=== PATIENT | male | born 1990 | race Caucasian/White ===

== ENCOUNTER 2016-09-18 10:05 | Emergency (ER) | payer SELFPAY ==
[~2016-09-18 10:05] MED LIST: HYDR-971 PO; IBUP800T19 PO; ONDA4TAB10 SL; PRED50TA PO
[2016-09-18 10:08] VITALS: BP 128/66
[2016-09-18] MEDS ORDERED: IPRATRPIUM/ALBUTEROL 0.5/2.5MG 3 ML NEBU. ONE (10:16)
[2016-09-18] MEDS ORDERED: IPRATRPIUM/ALBUTEROL 0.5/2.5MG 3 ML NEBU. NEB ONE (10:40)
[2016-09-18] MEDS ORDERED: methylPREDNISolone SOD SUCC PF 125 MG/2 ML VIAL. IM ONE (10:40)
[2016-09-18] MEDS ORDERED: ALBU2.5V14 NEB (11:47)
[2016-09-18] MEDS ORDERED: ALBU18HF IH (11:47)
[2016-09-18] MEDS ORDERED: GUAI118L13 PO (11:47)
[2016-09-18] MEDS ORDERED: PRED20TA PO (11:47)
--- NOTE | 2016-09-18 11:51 | PHYS DOC ---
General Chief Complaint: SHORTNESS OF BREATH Stated Complaint: SOA Time Seen by MD: 10:06 Source: patient Exam Limitations: no limitations Problems: History of Present Illness Initial Comments Pt is 25/M to ED c/o cough. Pt has h/o asthma, has neb machine but no meds. Past two days worsening dry cough, today FLEMING no SOB at rest. Runny nose/sneezing at home, no measured temperatures OTC meds not helping. Pt is a smoker, states he "just quit." Timing/Duration: 24 hours, getting worse Severity: moderate Modifying Factors: worse with movement, improves with rest Associated Symptoms: cough, malaise, shortness of breath Allergies: Coded Allergies: cefaclor (Verified Allergy, Unknown, 02/23/16) Past Medical History Medical History: other (asthma, ADHD) Surgical History: tonsillectomy Social History Smoker: cigarettes Alcohol: occasionally Drugs: none Review of Systems Constitutional: denies chills, denies diaphoresis, denies fever, malaise EENTM: denies eye pain, denies ear pain, nose congestion, denies throat pain Respiratory: see HPI Cardiovascular: denies chest pain, denies palpitations, denies syncope Gastrointestinal: denies diarrhea, denies nausea, denies vomiting Musculoskeletal: denies back pain, denies joint swelling, denies neck pain Psychiatric/Neurological: denies headache, denies numbness, denies paresthesia Physical Exam General Appearance: no apparent distress Eyes: bilateral eye normal inspection, bilateral eye PERRL, bilateral eye EOMI Ear, Nose, Throat: hearing grossly normal, normal ENT inspection, normal pharynx Neck: non-tender, supple Respiratory: other (wheezes with diminished air movement b/l no resp distress chest nontender) Cardiovascular: normal peripheral pulses, regular rate, rhythm Gastrointestinal: non tender, soft Back: no CVA tenderness, no vertebral tenderness Extremities: non-tender, normal inspection Neurologic/Psychiatric: drug and alcohol counselor II-XII nml as tested, no motor/sensory deficits, alert, normal mood/affect, oriented x 3 Skin: normal color, warm/dry Orders, Labs, Meds Improvement clinically and better air movement with duoneb/solumedrol in ED, pt expressed agreement/understanding with treatment plan. Advised to stop smoking. Departure Time of Disposition: 11:49 Disposition: 01 HOME, SELF-CARE Diagnosis: asthma exacerbation Condition: GOOD Patient Instructions: Asthma, Acute Bronchospasm Additional Instructions: Rest, no strenuous activity. Work excuse today. Avoid environmental allergens as you are able. Rx: prednisone, albuterol MDI and nebulizer solution, guaifenesin/codeine syrup Follow up with your doctor in 3-5 days for recheck. Return to ED with new or changing symptoms. ENRICO KHAN DO September 18, 2016 11:51
== END 2016-09-18 11:57 | disposition home or self-care (01) ==
LOC: ER 10:05
DX: J45.901 Unspecified asthma with (acute) exacerbation (principal); F17.210 Nicotine dependence, cigarettes, uncomplicated; Z88.1 Allergy status to other antibiotic agents
CPT/HCPCS: 94640; 96372; 99283; J2930; J7620; 90471

== ENCOUNTER 2017-11-06 20:33 | Emergency (ER) | payer SELFPAY ==
[~2017-11-06] VITALS: Ht 170.2 cm; Wt 129.7 kg
[~2017-11-06 20:33] MED LIST changes: +ALBU18HF IH; +ALBU2.5V14 NEB; +GUAI118L13 PO; +PRED20TA PO
[2017-11-06] MEDS ORDERED: IV NORMAL SALINE 1,000ML 1,000 ML IV ONE (21:00)
--- NOTE | 2017-11-06 21:10 | PHYS DOC ---
Past History Past Medical History: Asthma Past Surgical History: No Surgical History Additional Smoking Information: 1/2 pack daily Alcohol Use: None Drug Use: None Adult General Chief Complaint Chief Complaint: DENTAL PROBLEM HPI HPI 19-year-old male presents with right upper quadrant dental pain and sunburn. She was out of insulin without sunscreen and has extensive sunburn on his shoulders and upper extremities. His primary complaint is his face is swollen and he has right upper quadrant pain. He has had tooth pain for about the last 1 week, but today his face swelled significantly knee became concerned. He denies fever or chills at home. He knows he cracked tooth 2-3 weeks ago and has had sensitivity since. He does not regularly see a dentist. He has no other complaints. Review of Systems Review of Systems Constitutional: Denies fever or chills [] Eyes: Denies change in visual acuity, redness, or eye pain [] HENT: Dental pain [] Respiratory: Denies cough or shortness of breath [] Cardiovascular: No additional information not addressed in HPI [] GI: Denies abdominal pain, nausea, vomiting, bloody stools or diarrhea [] : Denies dysuria or hematuria [] Musculoskeletal: Denies back pain or joint pain [] Integument: Sunburn [] Neurologic: Denies headache, focal weakness or sensory changes [] Endocrine: Denies polyuria or polydipsia [] All other systems were reviewed and found to be within normal limits, except as documented in this note. Current Medications Current Medications Current Medications Medications (Trade) Dose Ordered Sig/[place] Start Time Stop Time Status Last Admin Dose Admin Clindamycin HCl (Cleocin) 300 mg 1X ONCE 11/06/17 21:15 11/06/17 21:16 Ketorolac Tromethamine (Toradol) 30 mg 1X ONCE 11/06/17 21:15 11/06/17 21:16 Sodium Chloride 1,000 ml @ 1,000 mls/hr 1X ONCE 11/06/17 21:00 11/06/17 21:59 Allergies Allergies Allergies Coded Allergies Type Severity Reaction Last Updated Verified cefaclor Allergy Unknown 02/23/16 Yes Physical Exam Physical Exam Constitutional: Well developed, well nourished, no acute distress, non-toxic appearance. [] HENT: Normocephalic, atraumatic, bilateral external ears normal, oropharynx moist. Swelling of the right upper gums, cracked right upper posterior molar, no palpable area of fluctuance to drain. [] Eyes: PERRLA, EOMI, conjunctiva normal, no discharge. [] Neck: Anterior cervical lymphadenopathy on the right[] Cardiovascular:Heart rate regular rhythm, no murmur [] Lungs & Thorax: Bilateral breath sounds clear to auscultation [] Abdomen: Bowel sounds normal, soft, no tenderness, no masses, no pulsatile masses. [] Skin: Sunburn of the face, bilateral upper extremities.[] Back: No tenderness, no CVA tenderness. [] Extremities: No tenderness, no cyanosis, no clubbing, ROM intact, no edema. [] Neurologic: Alert and oriented X 3, normal motor function, normal sensory function, no focal deficits noted. [] Psychologic: Affect normal, judgement normal, mood normal. [] Current Patient Data Vital Signs Vital Signs Date Time Temp Pulse Resp B/P (MAP) Pulse Ox O2 Delivery O2 Flow Rate FiO2 11/06/17 20:44 98.8 111 20 95 Room Air EKG EKG [] Radiology/Procedures Radiology/Procedures [] Course & Med Decision Making Course & Med Decision Making Pertinent Labs and Imaging studies reviewed. (See chart for details) Negative the patient 1 L of normal saline, 10 mg Compazine, 300 mg of clindamycin, and 2 mg morphine. I will discharge him with 7 days of clindamycin as well as 12 [place] 5/325. I strongly encouraged him to get into a dentist as soon as possible to have this tooth removed. [] Dragon Disclaimer Dragon Disclaimer This electronic medical record was generated, in whole or in part, using a voice recognition dictation system. Departure Departure: Referrals: KERRY HARDY (PCP) Scripts Hydrocodone Bit/Acetaminophen ([place] 5-325 TABLET) 1 Each Tablet 1 TAB PO PRN Q6HRS PRN for PAIN, #12 TAB 0 Refills Prov: RACHAEL ECKERT DO 11/06/17 Clindamycin Hcl (CLINDAMYCIN HCL) 300 Mg Capsule 1 CAP PO TID, #21 CAP Prov: RACHAEL ECKERT DO 11/06/17 RACHAEL ECKERT DO Nov 06, 2017 21:10
[2017-11-06] MEDS ORDERED: KETOROLAC 30 MG/ML VIAL. IV ONE (21:15)
[2017-11-06] MEDS ORDERED: CLINDAMYCIN HCL 150 MG CAPSULE PO ONE (21:15)
[2017-11-06 21:29] LABS: BASO # 0.2 x10^3/uL (0.0-0.2); BASO % 1 % (0-3); EOS # 0.4 x10^3/uL (0.0-0.7); EOS % 3 % (0-3); HEMATOCRIT 47.7 % (39.0-53.0); HEMOGLOBIN 16.6 g/dL (13.0-17.5); LYMPH # 3.9 x10^3/uL (1.0-4.8); LYMPH % 30 % (24-48); MEAN CORPUSCULAR HEMOGLOBIN 29 pg (25-35); MEAN CORPUSCULAR HGB CONC 35 g/dL (31-37); MEAN CORPUSCULAR VOLUME 84 fL (79-100); MONO # 0.7 x10^3/uL (0.0-1.1); MONO % 6 % (0-9); NEUT # 7.8 x10^3uL (1.8-7.7); NEUT % 60 % (31-73); PLATELET COUNT 255 x10^3/uL (140-400); RED BLOOD COUNT 5.65 x10^6/uL (4.30-5.70); RED CELL DISTRIBUTION WIDTH 14.6 % (11.5-14.5); WHITE BLOOD COUNT 12.9 x10^3/uL (4.0-11.0)
[2017-11-06 21:33] LABS: CALCIUM 9.3 mg/dL (8.5-10.1); CREATININE 1.1 mg/dL (0.7-1.3); GFR 79.7; POTASSIUM 3.4 mmol/L (3.5-5.1)
[2017-11-06] MEDS ORDERED: PROCHLORPERAZINE 10 MG/2 ML VIAL. IV ONE (22:00)
[2017-11-06] MEDS ORDERED: MORPHINE SULFATE 2 MG/ML DISP.SYRIN. IM ONE (22:00)
[2017-11-06] MEDS ORDERED: HYDR-971 PO (22:03)
[2017-11-06] MEDS ORDERED: CLIN300C8 PO (22:03)
[2017-11-06 22:22] VITALS: BP 142/91
== END 2017-11-06 22:30 | disposition home or self-care (01) ==
LOC: ER 20:33
DX: K08.89 Other specified disorders of teeth and supporting structures (principal); L55.9 Sunburn, unspecified; J45.909 Unspecified asthma, uncomplicated; F17.210 Nicotine dependence, cigarettes, uncomplicated; Z88.1 Allergy status to other antibiotic agents
CPT/HCPCS: 36415; 80048; 85025; 96372; 96374; 96375; 99284; J0780; J1885; J2270; J7030

== ENCOUNTER 2018-04-09 13:22 | Emergency (ER) | payer SELFPAY ==
[~2018-04-09] VITALS: Ht 167.6 cm; Wt 133.8 kg
[~2018-04-09 13:22] MED LIST changes: +CLIN300C8 PO; +HYDR-3165 PO; -HYDR-971 PO
[2018-04-09 13:32] VITALS: BP 153/93
[2018-04-09] MEDS ORDERED: PENI500T PO (13:54)
[2018-04-09] MEDS ORDERED: Percogesic PO (13:54)
--- NOTE | 2018-04-09 13:55 | PHYS DOC ---
Past History Past Medical History: No Pertinent History Past Surgical History: Other Smoking: Cigarettes Alcohol Use: Rarely Drug Use: None Adult General Chief Complaint Chief Complaint: DENTAL PROBLEM HPI HPI Patient is a 27 year old male who presents with draining of dental pain. 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 Patient denies fever and chills, nausea and vomiting, problems swallowing. Patient states he did not have dental insurance to follow up with a dentist but took [id number] pain medication without improvement of his condition. Patient has history of 15 years smoking. Review of Systems Review of Systems Constitutional: Denies fever or chills [] Eyes: Denies change in visual acuity, redness, or eye pain [] HENT: Denies nasal congestion or sore throat, reports dental pain Respiratory: Denies cough or shortness of breath [] Cardiovascular: No additional information not addressed in HPI [] GI: Denies abdominal pain, nausea, vomiting, bloody stools or diarrhea [] : Denies dysuria or hematuria [] Musculoskeletal: Denies back pain or joint pain [] Integument: Denies rash or skin lesions [] Neurologic: Denies headache, focal weakness or sensory changes [] Endocrine: Denies polyuria or polydipsia [] All other systems were reviewed and found to be within normal limits, except as documented in this note. Allergies Allergies Allergies Coded Allergies Type Severity Reaction Last Updated Verified cefaclor Allergy Unknown 02/23/16 Yes Physical Exam Physical Exam Constitutional: Well developed, well nourished, mild distress, non-toxic appearance. [] HENT: Normocephalic, atraumatic, bilateral external ears normal, oropharynx moist, no oral exudates, nose normal, extensive dental cavity is, tenderness of tooth # 6 and 7 without sign of abscess. [] Eyes: PERRLA, EOMI, conjunctiva normal, no discharge. [] Neck: Normal range of motion, no tenderness, supple, no stridor. [] Cardiovascular:Heart rate regular rhythm, no murmur [] Lungs & Thorax: Bilateral breath sounds clear to auscultation [] Skin: Warm, dry, no erythema, no rash. [] Back: No tenderness, no CVA tenderness. [] Extremities: No tenderness, no cyanosis, no clubbing, ROM intact, no edema. [] Neurologic: Alert and oriented X 3, normal motor function, normal sensory function, no focal deficits noted. [] Psychologic: Affect anxious, judgement normal, mood normal. [] Current Patient Data Vital Signs Vital Signs Date Time Temp Pulse Resp B/P (MAP) Pulse Ox O2 Delivery O2 Flow Rate FiO2 04/09/18 13:32 97.7 101 16 99 Room Air EKG EKG [] Radiology/Procedures Radiology/Procedures [] Course & Med Decision Making Course & Med Decision Making Evaluation of patient in ER showed 27-year-old male patient with extensive dental cavity and smoking prolonged time presented to ER with complaining of several dental pain. Patient had stable vital sign and treated with [place] and instructed to quit smoking and follow up with the dentist. Dragon Disclaimer Dragon Disclaimer This electronic medical record was generated, in whole or in part, using a voice recognition dictation system. Departure Departure: Disposition: 01 HOME, SELF-CARE (at 1351) Condition: STABLE Referrals: PCP,DEVANTE (PCP) Patient Instructions: Dental Caries, Smoking Cessation, Tips For Success, Toothache-Brief Additional Instructions: Quit smoking Follow-up with your dentist in 3-5 days Return to ER if not getting better Scripts [Percogesic] No Conflict Check 1 TAB PO QID for pain, #14 Prov: HECTOR CARRILLO MD 04/09/18 Penicillin V Potassium (PENICILLIN V POTASSIUM) 500 Mg Tablet 1 TAB PO QID for Infection, #40 TAB Prov: HECTOR CARRILLO MD 04/09/18 HECTOR CARRILLO MD Apr 09, 2018 13:55
[2018-04-09] MEDS ORDERED: HYDROcodone/APAP 5/325MG 1 TAB TABLET PO ONE (14:00)
== END 2018-04-09 14:02 | disposition home or self-care (01) ==
LOC: ER 13:22
DX: K02.9 Dental caries, unspecified (principal); F17.210 Nicotine dependence, cigarettes, uncomplicated; Z88.1 Allergy status to other antibiotic agents
CPT/HCPCS: 99283

== ENCOUNTER 2018-10-05 19:47 | Emergency (ER) | payer SELFPAY ==
[~2018-10-05] VITALS: Ht 170.2 cm; Wt 129.3 kg
[~2018-10-05 19:47] MED LIST changes: -ALBU18HF IH; +ALBU2.5V8 IH; +PENI500T PO; +Percogesic PO
--- NOTE | 2018-10-05 20:01 | ED.ADGEN ---
Past History Past Medical History: No Pertinent History Past Surgical History: Other Smoking: Cigarettes Alcohol Use: Rarely Drug Use: None Adult General Chief Complaint Chief Complaint ".. I got this bad tooth ... here ( points to 1).. It cost 200 bucks to get it cut out... The dentist says... it can't be pulled and I need to see a dental joel annette person.. " HPI HPI Patient is a 27 year old male who presents with above hx and complaints of dental pain in the area of tooth 1. This area has marked decay to tooth into the gumline. No pointing abscess . Has multiple other areas of dental decay and gingivitis. No trismus. Patient denies immunosuppression. Patient denies any history of diabetes. Patient has seen dentist however has not made arrangements for dental extraction with a oral surgeon. No recent travel. No specific ill contacts. Patient rates his pain is 20 out of 10. Noted patient has been seen previously in the emergency department for dental pain. Review of Systems Review of Systems Constitutional: Denies fever or chills [] Eyes: Denies change in visual acuity, redness, or eye pain []complains of dental pain HENT: Denies nasal congestion or sore throat [] Respiratory: Denies cough or shortness of breath [] Cardiovascular: No additional information not addressed in HPI [] GI: Denies abdominal pain, nausea, vomiting, bloody stools or diarrhea [] : Denies dysuria or hematuria [] Musculoskeletal: Denies back pain or joint pain [] Integument: Denies rash or skin lesions [] Neurologic: Denies headache, focal weakness or sensory changes [] Endocrine: Denies polyuria or polydipsia [] All other systems were reviewed and found to be within normal limits, except as documented in this note. Family History Family History Noncontributory Current Medications Current Medications Current Medications Medications (Trade) Dose Ordered Sig/[place] Start Time Stop Time Status Last Admin Dose Admin Ceftriaxone Sodium (Rocephin Im) 1 gm 1X ONCE 10/05/18 20:15 10/05/18 20:27 DC 10/05/18 20:39 1 GM Ketorolac Tromethamine (Toradol Im) 60 mg 1X ONCE 10/05/18 20:15 10/05/18 20:24 DC 10/05/18 20:40 60 MG Allergies Allergies Allergies Coded Allergies Type Severity Reaction Last Updated Verified cefaclor Allergy Unknown 02/23/16 Yes tramadol Allergy Unknown 04/09/18 Yes Physical Exam Physical Exam Constitutional: in acute distress, non-toxic appearance. [] HENT: Normocephalic, atraumatic, bilateral external ears normal, oropharynx moist, no oral exudates, nose normal. []Multiple areas of dental decay. See history of present illness Eyes: PERRLA, EOMI, conjunctiva normal, no discharge. [] Neck: Normal range of motion, no tenderness, supple, no stridor. [] Cardiovascular:Heart rate regular rhythm, no murmur [] Lungs & Thorax: Bilateral breath sounds equal apex with scattered wheezes on auscultation [] Abdomen: Bowel sounds normal, soft, no tenderness, no masses, no pulsatile masses. Obese. Skin: Warm, dry, no erythema, no rash. [] Back: No tenderness, no CVA tenderness. [] Extremities: No tenderness, no cyanosis, no clubbing, ROM intact, no edema. [] Neurologic: Alert and oriented X 3, normal motor function, normal sensory function, no focal deficits noted. [] Psychologic: Affect anxious,, judgement normal, mood normal. [] Current Patient Data Vital Signs Vital Signs Date Time Temp Pulse Resp B/P (MAP) Pulse Ox O2 Delivery O2 Flow Rate FiO2 10/05/18 21:22 87 18 97 10/05/18 19:59 98.4 Room Air EKG EKG [] Radiology/Procedures Radiology/Procedures [] Course & Med Decision Making Course & Med Decision Making Pertinent Labs and Imaging studies reviewed. (See chart for details). Patient to follow-up with dentist and oral surgery. Patient informed that any meds Coumadin tonight will not fix his cause for dental pain and must follow-up and have removal of tooth 1, The patient's take Tylenol and ibuprofen for pain. For marked pain may take Vicoprofen up to 4 times a day. Patient take Keflex 503 times a day.. ( Note pt has take Keflex in past without problems). Patient encouraged to stop smoking. [] Final Impression Final Impression 1. Dental pain-caries 2. Tobacco use.[] Dragon Disclaimer Dragon Disclaimer This electronic medical record was generated, in whole or in part, using a voice recognition dictation system. Discharge Summary Brief Hospital Course Allergies Allergies Coded Allergies Type Severity Reaction Last Updated Verified cefaclor Allergy Unknown 02/23/16 Yes tramadol Allergy Unknown 04/09/18 Yes Vital Signs Vital Signs Date Time Temp Pulse Resp B/P (MAP) Pulse Ox O2 Delivery O2 Flow Rate FiO2 10/05/18 21:22 87 18 97 10/05/18 19:59 98.4 Room Air Brief Hospital Course Mr. Chicas is a 27 old male who presented with dental pain. Discharge Information Condition at Discharge: Stable Disposition/Orders: D/C to Home Dischare Medications Current Medications Ketorolac Tromethamine (Toradol Im) 60 mg 1X ONCE IM Last administered on 10/05/18at 20:40; Admin Dose 60 MG; Start 10/05/18 at 20:15; Stop 10/05/18 at 20:24; Status DC Ceftriaxone Sodium (Rocephin Im) 1 gm 1X ONCE IM Last administered on 10/05/18at 20:39; Admin Dose 1 GM; Start 10/05/18 at 20:15; Stop 10/05/18 at 20:27; Status DC Active Scripts Active Keflex (Cephalexin) 500 Mg Capsule 500 Mg PO TID Hydrocodone-Ibuprofen 7.5-200 (Hydrocodone/Ibuprofen) 1 Each Tablet 1 Tab PO PRN Q6HRS PRN [Percogesic] 1 Tab PO QID Penicillin V Potassium 500 Mg Tablet 1 Tab PO QID [place] 5-325 Tablet (Hydrocodone Bit/Acetaminophen) 1 Each Tablet 1 Tab PO PRN Q6HRS PRN Clindamycin Hcl 300 Mg Capsule 1 Cap PO TID Guaifenesin-Codeine Syrup (Guaifenesin/Codeine Phosphate) 118 Ml Liquid 5 Ml PO Q6HRS Ventolin Hfa Inhaler (Albuterol Sulfate) 18 Gm Hfa.aer.ad 2 Puff IH PRN Q4HRS PRN Prednisone 20 Mg Tablet 20 Mg PO BID Albuterol Sulfate Conc Neb Soln (Albuterol Sulfate) 2.5 Mg/0.5 Ml Vial.neb 1 Vial NEB Q4HRS 10 Days [place] 5-325 Tablet (Hydrocodone Bit/Acetaminophen) 1 Each Tablet 1-2 Tab PO PRN Q6HRS PRN Reported Ibuprofen 800 Mg Tablet 800 Mg PO 1X Dragon Disclaimer This chart was dictated in whole or in part using Voice Recognition software in a busy, high-work load, and often noisy Emergency Department environment. It may contain unintended and wholly unrecognized errors or omissions. SADA MATHUR MD October 05, 2018 20:01
[2018-10-05] MEDS ORDERED: cefTRIAXone IM 1 GM VIAL IM ONE (20:15)
[2018-10-05] MEDS ORDERED: KETOROLAC 60 MG/2 ML VIAL. IM ONE (20:15)
[2018-10-05] MEDS ORDERED: CEPH-264 PO (20:18)
[2018-10-05] MEDS ORDERED: HYDR-1179 PO (20:18)
[2018-10-05 21:22] VITALS: BP 154/76
== END 2018-10-05 21:21 | disposition home or self-care (01) ==
LOC: ER 19:47
DX: K02.9 Dental caries, unspecified (principal); F17.210 Nicotine dependence, cigarettes, uncomplicated; Z88.1 Allergy status to other antibiotic agents; Z88.6 Allergy status to analgesic agent
CPT/HCPCS: 96372; 99284; J0696; J1885

== ENCOUNTER 2019-06-26 04:22 | Inpatient (IN) | payer OTHER ==
[~2019-06-26] VITALS: Ht 167.6 cm; Wt 138.5 kg
[~2019-06-26 04:22] MED LIST changes: +CEPH-264 PO; +HYDR-1179 PO
--- NOTE | 2019-06-26 04:39 | PHYS DOC ---
Past History Past Medical History: Asthma, Bronchitis (SADA MATHUR MD) Past Surgical History: Other (SADA MATHUR MD) Smoking: Cigarettes Alcohol Use: None Drug Use: None (SADA MATHUR MD) Adult General Chief Complaint Chief Complaint: ABDOMINAL PAIN.." I ve been vomiting.. .now dry heaves...and diarrhea.. not been able to keep anything down since yesterday..." HPI HPI Patient is a 28 year old male who presents with above hx and complaints of abdomen pain, nausea, diarrhea and vomiting. Patient recently seen for dental infections and due to have multiple extractions and currently on amoxicillin. No recent travel or specific ill contacts. No history of specific intake of bad food. Patient localizes pain in epigastric and right upper quadrant. Patient did not get flu vaccination this season. (SADA MATHUR MD) Review of Systems Review of Systems Constitutional: Denies fever or chills [] Eyes: Denies change in visual acuity, redness, or eye pain [] HENT: Denies nasal congestion or sore throat [] Respiratory: Denies cough or shortness of breath [] Cardiovascular: No additional information not addressed in HPI [] GI: History of epigastric and right upper quadrant abdominal pain, nausea, vomiting, and diarrhea [] : Denies dysuria or hematuria [] Musculoskeletal: Denies back pain or joint pain [] Integument: Denies rash or skin lesions [] Neurologic: Denies headache, focal weakness or sensory changes [] Endocrine: Denies polyuria or polydipsia [] All other systems were reviewed and found to be within normal limits, except as documented in this note. (SADA MATHUR MD) Family History Family History (Numbers had influenza A last month (SADA MATHUR MD) Current Medications Current Medications See nursing for home meds (SADA MATHUR MD) Allergies Allergies Allergies Coded Allergies Type Severity Reaction Last Updated Verified cefaclor Allergy Unknown 02/23/16 Yes tramadol Allergy Unknown 04/09/18 Yes (SADA MATHUR MD) Physical Exam Physical Exam Constitutional: Moderate acute distress, non-toxic appearance. [] HENT: Normocephalic, atraumatic, bilateral external ears normal, oropharynx dry, no oral exudates, nose normal. []Multiple dental caries Eyes: PERRLA, EOMI, conjunctiva normal, no discharge. [] Neck: Normal range of motion, no tenderness, supple, no stridor. [] Cardiovascular: Tachycardia Heart rate regular rhythm, no murmur [] Lungs & Thorax: Bilateral breath sounds equal apex with scattered wheezes on auscultation [] Abdomen: Bowel sounds are active, soft, right upper quadrant and epigastric tenderness, no masses, no pulsatile masses. [] Rebound pain to Rt. upper quadrant. Skin: Warm, dry, no erythema, no rash. [Tattoos Back: No tenderness, no CVA tenderness. [] Extremities: No tenderness, no cyanosis, no clubbing, ROM intact, bilateral ankle edema. [] Neurologic: Alert and oriented X 3, normal motor function, normal sensory function, no focal deficits noted. [] Psychologic: Affect anxious, judgement normal, mood normal. [] (SADA MATHUR MD) Current Patient Data Vital Signs Vital Signs Date Time Temp Pulse Resp B/P (MAP) Pulse Ox O2 Delivery O2 Flow Rate FiO2 06/26/19 04:22 98.4 110 18 144/105 (118) 95 Room Air (SADA MATHUR MD) Lab Results Laboratory Tests Test 06/26/19 04:45 White Blood Count 16.2 x10^3/uL Red Blood Count 6.26 x10^6/uL Hemoglobin 17.8 g/dL Hematocrit 53.2 % Mean Corpuscular Volume 85 fL Mean Corpuscular Hemoglobin 28 pg Mean Corpuscular Hemoglobin Concent 33 g/dL Red Cell Distribution Width 14.4 % Platelet Count 326 x10^3/uL Neutrophils (%) (Auto) 84 % Lymphocytes (%) (Auto) 11 % Monocytes (%) (Auto) 4 % Eosinophils (%) (Auto) 0 % Basophils (%) (Auto) 0 % Neutrophils # (Auto) 13.6 x10^3uL Lymphocytes # (Auto) 1.8 x10^3/uL Monocytes # (Auto) 0.7 x10^3/uL Eosinophils # (Auto) 0.1 x10^3/uL Basophils # (Auto) 0.0 x10^3/uL Segmented Neutrophils % 74 % Band Neutrophils % 5 % Lymphocytes % 14 % Monocytes % 5 % Eosinophils % 2 % Platelet Estimate Adequate Prothrombin Time 9.8 SEC Prothromb Time International Ratio 0.9 Activated Partial Thromboplast Time 30 SEC Sodium Level 142 mmol/L Potassium Level 4.2 mmol/L Chloride Level 103 mmol/L Carbon Dioxide Level 25 mmol/L Anion Gap 14 Blood Urea Nitrogen 13 mg/dL Creatinine 1.1 mg/dL Estimated GFR (Cockcroft-Gault) 79.1 Glucose Level 125 mg/dL Calcium Level 9.9 mg/dL Total Bilirubin 0.3 mg/dL Direct Bilirubin 0.1 mg/dL Aspartate Amino Transf (AST/SGOT) 24 U/L Alanine Aminotransferase (ALT/SGPT) 56 U/L Alkaline Phosphatase 79 U/L Creatine Kinase 81 U/L Troponin I Quantitative < 0.017 ng/mL Total Protein 8.2 g/dL Albumin 4.0 g/dL Amylase Level 36 U/L Lipase 119 U/L Influenza Type A (Rapid) Negative Influenza Type B (Rapid) Negative Current Medications Medications (Trade) Dose Ordered Sig/[place] Route PRN Reason Start Time Stop Time Status Last Admin Dose Admin Lactated Ringer's 1,000 ml @ 1,000 mls/hr Q1H IV 06/26/19 05:00 06/26/19 05:59 DC 06/26/19 05:01 Ondansetron HCl (Zofran) 8 mg 1X ONCE IVP 06/26/19 05:00 06/26/19 05:01 DC 06/26/19 05:01 Famotidine (Pepcid Vial) 20 mg 1X ONCE IVP 06/26/19 05:00 06/26/19 05:01 DC 06/26/19 05:02 Ketorolac Tromethamine (Toradol 30mg Vial) 30 mg 1X ONCE IVP 06/26/19 05:00 06/26/19 05:01 DC 06/26/19 05:02 Ceftriaxone Sodium 1 gm/ Sodium Chloride 50 ml @ 100 mls/hr 1X ONCE IV 06/26/19 04:45 06/26/19 05:14 UNV Metronidazole 100 ml @ 100 mls/hr 1X ONCE IV 06/26/19 05:30 06/26/19 06:29 DC 06/26/19 05:21 Vancomycin HCl 1 gm/Sodium Chloride 250 ml @ 250 mls/hr 1X ONCE IV 06/26/19 05:30 06/26/19 06:29 DC 06/26/19 05:21 Morphine Sulfate (Morphine 10mg Syringe) 10 mg 1X ONCE SQ 06/26/19 05:30 06/26/19 05:31 DC 06/26/19 05:31 Sodium Chloride 250 ml @ As Directed STK-MED ONCE .ROUTE 06/26/19 05:18 06/26/19 05:19 DC Vancomycin HCl (Vancomycin) 1 gm STK-MED ONCE .ROUTE 06/26/19 05:18 06/26/19 05:19 DC Iohexol (Omnipaque 300 Mg/ml) 75 ml 1X ONCE IV 06/26/19 06:30 06/26/19 06:31 DC Iohexol (Omnipaque 240 Mg/ml) 30 ml 1X ONCE PO 06/26/19 06:30 06/26/19 06:31 DC Info (Do NOT chart on this entry -- for MONITORING) 1 each PRN DAILY PRN MC SEE COMMENTS 06/26/19 06:15 06/28/19 06:14 (ZI HOUSTON DO) EKG EKG [] (SADA MATHUR MD) Radiology/Procedures Radiology/Procedures [] (SADA MATHUR MD) Radiology/[place] [address] IMAGING REPORT Signed PATIENT: JOELLE JOHNSON ACCOUNT: [id number] : 1990 LOCATION: ER AGE: 28 SEX: M EXAM STATUS: REG ER ORD. PHYSICIAN: SADA MATHUR MD REASON: nv, Rt. upper quadrant pain, OMNI 300, 75ml & OMNI 240, 30ml PROCEDURE: CT ABD PELV W/ORAL&IV CONTRAST EXAM: CT Abdomen and Pelvis with IV contrast INDICATION: Right upper quadrant abdominal pain. TECHNIQUE: Multi-detector row CT images were acquired from the lung bases through the abdomen and pelvis with the use of IV contrast. Sagittal and coronal images were acquired from the transaxial data. All CT scans performed at this facility utilize dose optimization techniques as appropriate to the exam, including the following: Automated exposure control and adjustment of the mA and/or KV according to patient size (this includes techniques or standardized protocols for targeted exams where dose is indication/reason for exam). IV CONTRAST: Administered ORAL CONTRAST: Administered COMPARISON: Obstructive series of earlier the same day FINDINGS: LOWER CHEST: Unremarkable LIVER: Diffuse fatty infiltration. BILIARY SYSTEM: Gallbladder is unremarkable. Bile ducts are not dilated. PANCREAS: Unremarkable SPLEEN: Unremarkable ADRENALS: Unremarkable KIDNEYS & URETERS: Unremarkable BLADDER: Unremarkable REPRODUCTIVE ORGANS: Unremarkable GASTROINTESTINAL: There is abnormal wall thickening and mucosal hyperemia along multiple segments of the terminal ileum with distal stricturing that results in interruption in the column of contrast in the small bowel lumen and nonopacification of distal small bowel loops. Scattered colonic diverticuli are present. The distal large bowel is largely collapsed. The appendix is unremarkable. MESENTERY/PERITONEUM/RETROPERITONEUM: Small amount of free intraperitoneal fluid is present in the right lower quadrant abdomen. VASCULAR: Unremarkable LYMPH NODES: No adenopathy OSSEOUS & SOFT TISSUES: Unremarkable IMPRESSION: CT findings consistent with regional enteritis, suspicious for a flare of Crohn's disease. This is associated with a partial small bowel obstruction. No perforation or abscess formation. Electronically signed by: Lou Dias MD (06/26/2019 7:44 AM) [id number] DICTATED AND SIGNED BY: LOU DIAS MD DATE: 06/26/19 0744 CC: SADA MATHUR MD; KERRY HARDY; ZI HOUSTON DO ~ [place] [address] IMAGING REPORT Signed PATIENT: JOELLE JOHNSON ACCOUNT: [id number] : 1990 LOCATION: ER AGE: 28 SEX: M EXAM STATUS: REG ER ORD. PHYSICIAN: SADA MATHUR MD REASON: nv PROCEDURE: ACUTE ABDOMEN SERIES PROCEDURE: ACUTE ABDOMEN SERIES STUDY DATE: 06/26/2019 CLINICAL INDICATION / HISTORY: Nausea and vomiting. TECHNIQUE: Upright PA chest, supine and upright films of the abdomen were obtained. COMPARISON: Abdominal x-ray of July 07, 2005. FINDINGS: AP view the chest reveals the lungs to be clear. Cardiac and mediastinal silhouette are unremarkable. No free air is identified below the diaphragms. Supine and upright views of the abdomen reveal right midabdomen dilated loops of bowel with mild wall thickening but no obvious air-fluid levels. No organomegaly is present. No destructive osseous lesions. IMPRESSION: Dilated small bowel loops in the right mid abdomen with mild wall thickening suspicious for small bowel obstruction. No evidence of bowel perforation. Electronically signed by: Lou Dias MD (06/26/2019 8:14 AM) [id number] DICTATED AND SIGNED BY: LOU DIAS MD DATE: 06/26/19 0814 CC: SADA MATHUR MD; KERRY HARDY; ZI HOUSTON DO ~ (ZI HOUSTON DO) Course & Med Decision Making Course & Med Decision Making Pertinent Labs and Imaging studies reviewed. (See chart for details) Patient endorse to Dr. Houston at shift change. He will make disposition of pt. Impression: 1. Nausea, vomiting and diarrhea acute gastroenteritis 2. Dehydration 3. Dental decay 4. Leukocytosis 16.2 5. Tobacco use 6. Regional Enteritis- Colitis [] (SADA MATHUR MD) Course & Med Decision Making Patient was found to have small bowel obstruction, will admit to the hospital for treatment, iv fluid, pain control, PAIN IS UNDER CONTROL, NO LONGER HAVING NAUSEA OR VOMITING, will need to place NG tube, will consider transfer to [place] for surgical evaluation if condition is not improving, discussed with DR. SWIFT who agreed to admit patient. (ZI HOUSTON DO) Dragon Disclaimer Dragon Disclaimer This electronic medical record was generated, in whole or in part, using a voice recognition dictation system. (SADA MATHUR MD) Departure Departure: Impression: Primary Impression: Small bowel obstruction Additional Impression: Abdominal pain Disposition: 09 ADMITTED INPATIENT Admitting Physician: Zulay Swift (ZI HOUSTON DO) Condition: STABLE Referrals: PCP,NO (PCP) Dragon Disclaimer This chart was dictated in whole or in part using Voice Recognition software in a busy, high-work load, and often noisy Emergency Department environment. It may contain unintended and wholly unrecognized errors or omissions. (SADA MATHUR MD) Problem Qualifiers SADA MATHUR MD Jun 26, 2019 04:39 ZI HOUSTON DO Jun 26, 2019 06:35
[2019-06-26] MEDS ORDERED: IV RINGERS SOLUTION,LACTATED 1,000 ML IV SCH (05:00)
[2019-06-26] MEDS ORDERED: KETOROLAC 30 MG/ML VIAL. IVP ONE (05:00)
[2019-06-26] MEDS ORDERED: ONDANSETRON PF 4 MG/2 ML VIAL. IVP ONE (05:00)
[2019-06-26] MEDS ORDERED: FAMOTIDINE 20 MG/2 ML VIAL IVP ONE (05:00)
[2019-06-26 05:03] LABS: BASO % 0 % (0-3); EOS # 0.1 x10^3/uL (0.0-0.7); EOS % 0 % (0-3); HEMATOCRIT 53.2 % (39.0-53.0); HEMOGLOBIN 17.8 g/dL (13.0-17.5); LYMPH # 1.8 x10^3/uL (1.0-4.8); LYMPH % 11 % (24-48); MEAN CORPUSCULAR HEMOGLOBIN 28 pg (25-35); MEAN CORPUSCULAR HGB CONC 33 g/dL (31-37); MEAN CORPUSCULAR VOLUME 85 fL (79-100); MONO # 0.7 x10^3/uL (0.0-1.1); MONO % 4 % (0-9); NEUT # 13.6 x10^3uL (1.8-7.7); NEUT % 84 % (31-73); PLATELET COUNT 326 x10^3/uL (140-400); RED BLOOD COUNT 6.26 x10^6/uL (4.30-5.70); RED CELL DISTRIBUTION WIDTH 14.4 % (11.5-14.5); WHITE BLOOD COUNT 16.2 x10^3/uL (4.0-11.0)
[2019-06-26 05:08] LABS: CALCIUM 9.9 mg/dL (8.5-10.1); CREATININE 1.1 mg/dL (0.7-1.3); GFR 79.1; POTASSIUM 4.2 mmol/L (3.5-5.1)
[2019-06-26 05:14] LABS: DIRECT BILIRUBIN 0.1 mg/dL (0.0-0.2); TOTAL BILIRUBIN 0.3 mg/dL (0.2-1.0); TOTAL PROTEIN 8.2 g/dL (6.4-8.2)
[2019-06-26 05:15] LABS: INFLUENZA A PATIENT NEGATIVE (NEGATIVE); INFLUENZA B PATIENT NEGATIVE (NEGATIVE)
[2019-06-26] MEDS ORDERED: IV NORMAL SALINE 250ML 250 ML ONE (05:18)
[2019-06-26] MEDS ORDERED: VANCOMYCIN 1 GM VIAL. ONE (05:18)
[2019-06-26 05:22] LABS: % BANDS 5 % (0-9); % EOS 2 % (0-5); % LYMPHS 14 % (24-48); % MONOS 5 % (0-10); % SEGS 74 % (35-66); PLT ESTIMATE ADEQUATE (ADEQUATE)
[2019-06-26] MEDS ORDERED: VANCOMYCIN 1 GM in IV NORMAL SALINE 250ML 250 ML IV ONE (05:30)
[2019-06-26] MEDS ORDERED: MORPHINE SULFATE 10 MG/ML SYRINGE. SQ ONE (05:30)
[2019-06-26] MEDS ORDERED: CONTRAST GIVEN MC PRN (06:15)
[2019-06-26] MEDS ORDERED: IOHEXOL 300 MG/ML 75 ML VIAL. IV ONE (06:30)
[2019-06-26] MEDS ORDERED: IOHEXOL 240 MG/ML 50ML VIAL. PO ONE (06:30)
[2019-06-26] MEDS ORDERED: IV NORMAL SALINE 1,000ML 1,000 ML IV ONE (07:00)
[2019-06-26] MEDS ORDERED: MORPHINE SULFATE 4 MG/ML DISP.SYRIN. IV ONE (07:00)
[2019-06-26 07:19] LABS: AMPHETAMINE/METHAMPHETAMINE POS (NEG); BARBITURATES NEG (NEG); BENZODIAZEPINES NEG (NEG); CANNABINOIDS POS (NEG); COCAINE NEG (NEG); METHADONE NEG (NEG); OPIATES POS (NEG); PHENCYCLIDINE NEG (NEG)
--- NOTE | 2019-06-26 07:47 | RAD ---
EXAM: CT Abdomen and Pelvis with IV contrast INDICATION: Right upper quadrant abdominal pain. TECHNIQUE: Multi-detector row CT images were acquired from the lung bases through the abdomen and pelvis with the use of IV contrast. Sagittal and coronal images were acquired from the transaxial data. All CT scans performed at this facility utilize dose optimization techniques as appropriate to the exam, including the following: Automated exposure control and adjustment of the mA and/or KV according to patient size (this includes techniques or standardized protocols for targeted exams where dose is indication/reason for exam). IV CONTRAST: Administered ORAL CONTRAST: Administered COMPARISON: Obstructive series of earlier the same day FINDINGS: LOWER CHEST: Unremarkable LIVER: Diffuse fatty infiltration. BILIARY SYSTEM: Gallbladder is unremarkable. Bile ducts are not dilated. PANCREAS: Unremarkable SPLEEN: Unremarkable ADRENALS: Unremarkable KIDNEYS & URETERS: Unremarkable BLADDER: Unremarkable REPRODUCTIVE ORGANS: Unremarkable GASTROINTESTINAL: There is abnormal wall thickening and mucosal hyperemia along multiple segments of the terminal ileum with distal stricturing that results in interruption in the column of contrast in the small bowel lumen and nonopacification of distal small bowel loops. Scattered colonic diverticuli are present. The distal large bowel is largely collapsed. The appendix is unremarkable. MESENTERY/PERITONEUM/RETROPERITONEUM: Small amount of free intraperitoneal fluid is present in the right lower quadrant abdomen. VASCULAR: Unremarkable LYMPH NODES: No adenopathy OSSEOUS & SOFT TISSUES: Unremarkable IMPRESSION: CT findings consistent with regional enteritis, suspicious for a flare of Crohn's disease. This is associated with a partial small bowel obstruction. No perforation or abscess formation. Electronically signed by: Corey Dias MD (06/26/2019 7:44 AM) [id number]
--- NOTE | 2019-06-26 08:17 | RAD ---
PROCEDURE: ACUTE ABDOMEN SERIES STUDY DATE: 06/26/2019 CLINICAL INDICATION / HISTORY: Nausea and vomiting. TECHNIQUE: Upright PA chest, supine and upright films of the abdomen were obtained. COMPARISON: Abdominal x-ray of July 07, 2005. FINDINGS: AP view the chest reveals the lungs to be clear. Cardiac and mediastinal silhouette are unremarkable. No free air is identified below the diaphragms. Supine and upright views of the abdomen reveal right midabdomen dilated loops of bowel with mild wall thickening but no obvious air-fluid levels. No organomegaly is present. No destructive osseous lesions. IMPRESSION: Dilated small bowel loops in the right mid abdomen with mild wall thickening suspicious for small bowel obstruction. No evidence of bowel perforation. Electronically signed by: Corey Dias MD (06/26/2019 8:14 AM) [id number]
[2019-06-26] MEDS ORDERED: ONDANSETRON PF 4 MG/2 ML VIAL. IV PRN (09:30)
[2019-06-26] MEDS: IV NORMAL SALINE 1,000ML 1,000 ML IV SCH ×2 (09:33→10:00)
[2019-06-26 10:39] VITALS: BP 148/85
[2019-06-26] MEDS: MORPHINE SULFATE 4 MG/ML DISP.SYRIN. IV PRN ×2 (11:25→20:04)
[2019-06-26] MEDS ORDERED: [UNRECOGNIZED DRUG - REMARK] (11:47)
[2019-06-26 14:51] VITALS: BP 128/76
--- NOTE | 2019-06-26 17:40 | SSS ---
ADMIT DATE: 06/26/2019 HISTORY OF PRESENT ILLNESS: The patient is a 28-year-old male patient who apparently started complaining of abdominal pain around 5:00 yesterday afternoon and has also some nausea, for which he was given Zofran. He continued to have recurrent bouts of nausea, vomiting and around 11:00 in the evening, he developed abdominal pain and the pain has worsened and therefore, the patient was brought to the Emergency Room of [facility] where he was extensively investigated. He also stated that he has multiple loose bowel movements about 5-10 before he arrived to the hospital and has not had since then. Denied any chills, rigors or fever. The pain is mostly in the epigastric area. He was seen recently for dental infection due to have multiple extractions currently on amoxicillin. He denied any recent travel or specific ill contact. No history of specific intake of bad food and none of his family members have similar symptoms. He was extensively evaluated in the Emergency Room and his lab work showed that he has leukocytosis with a white cell count of 16,000. His chemistry was mostly unremarkable. His prothrombin time, INR and aPTT are normal. His toxic screen was positive for opiates, amphetamine, and methamphetamine. He is on Vyvanse for ADHD and toxic screen was positive also for cannabinoids. His Influenza A and B are negative. He has had CT acute abdomen series, which showed that the patient has dilated small bowel loops in the right mid abdomen with mild wall thickening suspicious for small-bowel obstruction, no evidence of bowel perforation and has had a CT scan of the abdomen and pelvis, which showed that there is abnormal wall thickening and mucosal hyperemia along with multiple segments of the terminal ileum and distal stricturing that resulted interruption in the colon of contrast into the small bowel lumen and non-opacification of the distal small bowel loops with scattered colonic diverticula are present. The distal large bowel is largely collapsed. Appendix is unremarkable and small amount of free intraperitoneal fluid is present in the right lower quadrant. However, there is no lymphadenopathy and the findings are consistent with regional enteritis suspicious for a flare of Crohn's disease. This is associated with partial small-bowel obstruction, no perforation or abscess formation. The patient was kept in the Emergency Room and eventually was admitted to [facility]. There are no beds available at [facility]; however, once a bed available, we will work to transfer him there. PAST MEDICAL HISTORY: Significant for bronchial asthma and attention deficit hyperactivity disorder. PAST SURGICAL HISTORY: He has left ankle fracture, status post open reduction and internal fixation, tonsillectomy and adenoidectomy. ALLERGIES: He is allergic to CEFACLOR and TRAMADOL. MEDICATIONS: He is currently on Vyvanse. FAMILY HISTORY: Significant he has one sister who is younger and apparently anemic. His father at the age of 38 because of CVD and drug overdose. Mother is still alive at the age of 55, has hypertension and anxiety. SOCIAL HISTORY: He is , has a daughter and a son. He smokes up to a pack a day, does not drink alcohol or use any recreational drugs according to him. He is [id number] dad, takes care of their 2 years old daughter with spina bifida. REVIEW OF SYSTEMS: As per history of present illness. When I saw him, he was resting flat in bed, still complaining of abdominal pain, mostly in the epigastric area. Denied any further episodes of nausea and vomiting. Denied any diarrhea. Did not pass any gas according to him. PHYSICAL EXAMINATION: GENERAL: There was no pallor, jaundice, cyanosis or thyromegaly. No jugular venous distention. No limb edema. VITAL SIGNS: His heart rate was 65, blood pressure was 128/76, temperature was 97.8, respiratory rate was 16, and oxygen saturation was 93%. HEAD, EYES, EARS, NOSE AND THROAT: Showed normocephalic, atraumatic. NECK: Supple. HEART: Showed normal first and second heart sounds. No gallop, rub or murmur. CHEST: Clear to auscultation. No crepitation or rhonchi. ABDOMEN: Distended with tenderness mostly in the epigastric and right upper quadrant. There is no guarding or rigidity. No organomegaly. Bowel sounds are hyperactive. NEUROLOGIC: He was sleepy, but arousable. All cranial nerves intact. EXTREMITIES: He moves extremities without difficulty. LABORATORY DATA: His lab work this morning showed a white cell count of 16,200, hemoglobin 17.8, hematocrit 53, MCV 85 and platelet count 326,000. His prothrombin time, INR and aPTT are normal. His chemistry showed a serum sodium 142, potassium 4.2, chloride 103, bicarbonate 25, anion gap of 14, BUN 13, creatinine 1.1, estimated GFR was 79 mL per minute. His glucose 125, calcium was 9.9. Total bilirubin, AST, ALT, alkaline phosphatase were normal. His total protein was 8.2, albumin was 4. Serum lipase was 119. His toxic screen was positive for opiates, amphetamine, methamphetamine and cannabinoids. His influenza A and B were negative and his CT scan of the abdomen and pelvis with contrast showed that the lower chest is unremarkable. Liver with diffuse fatty infiltration. Gallbladder is unremarkable by ducts are not dilated. The pancreas, spleen, adrenals and kidneys and ureters as well as the bladder are unremarkable. Reproductive organs are unremarkable. In the gastrointestinal, there is abnormal wall thickening and mucosal hyperemia along with multiple segments of the terminal ileum with distal stricturing that results in an interruption in the colon with contrast. The small bowel lumen and non-opacification of the distal small bowel loops with scattered colonic diverticula are present. The distal large bowel is largely collapsed. The appendix is normal and these findings are consistent with regional enteritis suspicious for a flare of Crohn's disease. This is associated with a partial small-bowel obstruction, no perforation or abscess formation is seen. ASSESSMENT AND PLAN: The patient will be transferred to [facility] to consult the surgical team as well as the Gastroenterology team. JD QUARLES MD DR: YEHUDA/grace JOB#: [id number] / [id number]
[2019-06-26 19:05] VITALS: BP 148/87
== END 2019-06-26 20:25 | disposition short-term general hospital (02) | DRG 389 ==
LOC: ER 04:22 → 1 SOUTH 09:18 → ER 09:54
PROVIDERS: ADMIT Internal Medicine; ATTEND Internal Medicine
DX: K56.600 Partial intestinal obstruction, unspecified as to cause (principal); R65.10 Systemic inflammatory response syndrome (SIRS) of non-infectious origin without acute organ dysfunction; K50.90 Crohn's disease, unspecified, without complications; K52.89 Other specified noninfective gastroenteritis and colitis; E86.0 Dehydration; J45.909 Unspecified asthma, uncomplicated; F17.210 Nicotine dependence, cigarettes, uncomplicated; Z88.8 Allergy status to other drugs, medicaments and biological substances; Z82.49 Family history of ischemic heart disease and other diseases of the circulatory system; Z87.81 Personal history of (healed) traumatic fracture
CPT/HCPCS: 36415; 74022; 74177; 80048; 80076; 80307; 82150; 82550; 83690; 84484; 85007; 85025; 85610; 85730; 87045; 87493; 87804; 96365; 96368; 96372; 96375; 99406; J1885; J2270; J2405; J3010; J3370; J3490; J7050; J7120; Q9966; Q9967; 99285-25; J7030

== ENCOUNTER 2021-02-07 10:25 | Emergency (ER) | payer OTHER ==
[~2021-02-07] VITALS: Ht 172.7 cm; Wt 153.4 kg
[~2021-02-07 10:25] MED LIST changes: +CLIN-95 PO; -CLIN300C8 PO; +[UNRECOGNIZED DRUG - REMARK]
[2021-02-07] MEDS ORDERED: PENI500T PO (10:47)
--- NOTE | 2021-02-07 10:51 | PHYS DOC ---
Past History Past Medical History: Asthma, Bronchitis Additional Past Medical Histor: ADHD (CRISTI NEGRETE APRN) Past Surgical History: Other Additional Past Surgical Histo: left ankle (CRISTI NEGRETE APRN) Smoking: Cigarettes Alcohol Use: None Drug Use: None (CRISTI NEGRETE APRN) General Adult EDM: Chief Complaint: DENTAL PROBLEM HPI: HPI: Patient is a 30-year-old male presents with dental pain. Patient reports pain and swelling. Patient has multiple teeth that are blackened. "I try to have the dentist this morning but they were closed". "I took some ibuprofen but it did not help much". Denies fever. History of asthma, bronchitis, ADHD (CRISTI NEGRETE APRN) Review of Systems: Review of Systems: ROS At least 10 ROS systems have been reviewed and are negative except as documented in the HPI. General: Negative except as outlined in HPI above. Skin: Negative except as outlined in HPI above. HEENT: Negative except as outlined in HPI above. Neck: Negative except as outlined in HPI above. Respiratory: Negative except as outlined in HPI above.. Cardiovascular: Negative except as outlined in HPI above. Abdomen: Negative except as outlined in HPI above. : Negative except as outlined in HPI above. Back/MSK: Negative except as outlined in HPI above. Neuro: Negative except as outlined in HPI above. Psych: Negative except as outlined in HPI above. (CRISTI NEGRETE APRN) Allergies: Allergies: Allergies Coded Allergies Type Severity Reaction Last Updated Verified Influenza Virus Vaccines Allergy Unknown 02/07/21 Yes cefaclor Allergy Unknown 02/23/16 Yes egg Allergy Unknown Unknown 02/07/21 Yes tramadol Allergy Unknown 04/09/18 Yes (CRISTI NEGRETE APRN) Physical Exam: PE: Constitutional: Well developed, well nourished, no acute distress, non-toxic appearance. [] HENT: Maxillary, labial teeth 10, 11 are tender and blackened. Bilateral external ears normal, oropharynx moist, no oral exudates, nose normal. [] Eyes: PERRLA, EOMI, conjunctiva normal, no discharge. [] Neck: Normal range of motion, no tenderness, supple, no stridor. [] Cardiovascular:Heart rate regular rhythm, no murmur [] Lungs & Thorax: Bilateral breath sounds clear to auscultation [] Abdomen: Bowel sounds normal, soft, no tenderness, no masses, no pulsatile masses. [] Skin: Warm, dry, no erythema, no rash. [] Back: No tenderness, no CVA tenderness. [] Extremities: No tenderness, no cyanosis, no clubbing, ROM intact, no edema. [] Neurologic: Alert and oriented X 3, normal motor function, normal sensory function, no focal deficits noted. [] Psychologic: Affect normal, judgement normal, mood normal. [] (CRISTI NEGRETE APRN) Current Patient Data: Vital Signs: Vital Signs Date Time Temp Pulse Resp B/P (MAP) Pulse Ox O2 Delivery O2 Flow Rate FiO2 02/07/21 10:30 97.9 102 22 175/107 (129) 98 Room Air (CRISTI NEGRETE APRN) EKG: EKG: [] (CRISTI NEGRETE APRN) Radiology/Procedures: Radiology/Procedures: [] (CRISTI NEGRETE APRN) Heart Score: C/O Chest Pain: No Risk Factors: Risk Factors: DM, Current or recent (<one month) smoker, HTN, HLP, family history of CAD, obesity. Risk Scores: Score 0 - 3: 2.5% MACE over next 6 weeks - Discharge Home Score 4 - 6: 20.3% MACE over next 6 weeks - Admit for Clinical Observation Score 7 - 10: 72.7% MACE over next 6 weeks - Early Invasive Strategies (CRISTI NEGRETE APRN) Course & Med Decision Making: Course & Med Decision Making Pertinent Labs and Imaging studies reviewed. (See chart for details) [] 30-year-old male presents with dental pain and swelling. Pain is maxillary, labial teeth. Teeth 10 and 11. Patient states he tried to see his dentist this morning but they were closed. Reports taking ibuprofen with little relief. Patient given Toradol for pain relief. Instructed patient to continue taking ibuprofen and Tylenol at home for discomfort. Prescribed penicillin VK, 500 mg, every 4 x7 days. Advised him to take as directed and in full. Make follow-up appointment on Wednesday with dentist. (CRISTI NEGRETE APRN) [place] Disclaimer: [place] Disclaimer: This electronic medical record was generated, in whole or in part, using a voice recognition dictation system. (CRISTI NEGRETE APRN) Attending Co-Sign The patient was seen and interviewed as well as examined at the bedside. The chart was reviewed. The case was discussed. Agree with the plan of care. (RACHAEL ECKERT DO) Departure Departure: Impression: Primary Impression: Dental infection Disposition: HOME / SELF CARE / HOMELESS Condition: STABLE Referrals: KERRY HARDY (PCP) Patient Instructions: Dental Caries Additional Instructions: You were seen emergency room for dental pain and swelling. I am sending you home with a prescription for an antibiotic. Please make sure you take as directed and in full. You need to call your dentist on Wednesday make a follow-up appointment. Ibuprofen and Tylenol for pain. Return emergency room with worsening symptoms or concerns. EMERGENCY DEPARTMENT GENERAL DISCHARGE INSTRUCTIONS Thank you for coming to [facility] (ED) today and trusting us with you care. We trust that you had a positivie experience in our Emergency Department. If you wish to speak to the department management, you may call the director at [phone]. YOUR FOLLOW UP INSTRUCTIONS ARE FOLLOWS: 1. Do you have a private Doctor? If you do not have a private doctor, please ask for a resource list of physicians or clinics that may be able to assist you with follow up care. 2. The Emergency Physician has interpreted your x-rays. The X-Ray specialist will also review them. If there is a change in the findings, you will be notified in 48 hours when at all possible. 3. A lab test or culture has been done, your results will be reviewed and you will be notified if you need a change in treatment. ADDITIONAL INSTRUCTIONS AND INFORMATION: 1. Your care today has been supervised by a physician who is specially trained in emergency care. Many problems require more than one evaluation for a complete diagnosis and treatment. We recommend that you schedule your follow up appointment as recommended to ensure complete treatment of you illness or injury. If you are unable to obtain follow up care and continue to have a problem, or if your condition worsens, we recommend that you return to the ED. 2. We are not able to safely determine your condition over the phone nor are we able to give sound medical advice over the phone. For these safety reasons, if you call for medical advice we will ask you to come to the ED for further evaluation. 3. If you have any questions regarding these discharge instructions please call the ED at [phone]. SAFETY INFORMATION: In the interest of safety, wellness, and injury prevention; we encourage you to wear your sealbelt, if you smoke; quite smoking, and we encourage family to use a protective helmet for bicycling and other sporting events that present an increased risk for head injury. IF YOUR SYMPTOMS WORSEN OR NEW SYMPTOMS DEVELOP, OR YOU HAVE CONCERNS ABOUT YOUR CONDITION; OR IF YOUR CONDITION WORSENS WHILE YOU ARE WAITING FOR YOUR FOLLOW UP APPOINTMENT; EITHER CONTACT YOUR PRIMARY CARE DOCTOR, THE PHYSICIAN WHOSE NAME AND NUMBER YOU WERE GIVEN, OR RETURN TO THE ED IMMEDIATELY. Scripts Penicillin V Potassium (PENICILLIN V POTASSIUM) 500 Mg Tablet 1 TAB PO QID for dental caries, #40 TAB Prov: CRISTI NEGRETE APRN 02/07/21 CRISTI NEGRETE APRN Feb 07, 2021 10:51 RACHAEL ECKERT DO Feb 08, 2021 06:29
[2021-02-07] MEDS: KETOROLAC 15 MG/ML VIAL. IM ONE (11:00)
[2021-02-07 11:21] VITALS: BP 161/91
== END 2021-02-07 11:22 | disposition home or self-care (01) ==
LOC: ER 10:25
DX: K04.7 Periapical abscess without sinus (principal); J45.909 Unspecified asthma, uncomplicated; F17.210 Nicotine dependence, cigarettes, uncomplicated
CPT/HCPCS: 96372; 99283; J1885